=== PATIENT | female | born 1955 | race Caucasian/White ===

== ENCOUNTER 2020-09-21 13:50 | Outpatient (CLI) | payer MEDICARE, OTHER ==
[2020-09-21 14:25] LABS: ALT (SGPT) 50 U/L (8-55); AST (SGOT) 30 U/L (5-34); Albumin 3.3 g/dL (3.4-4.8); Alkaline Phosphatase 210 U/L (40-110); Anion Gap 19 mmol/L (10-20); BUN (Urea Nitrogen) 13 mg/dL (9.8-20.1); Bilirubin, Direct 0.3 mg/dL (0.1-0.3); Bilirubin, Total 0.6 mg/dL (0.2-1.2); Calc. Creatinine Clearance 0 mL/min (70-130); Calcium 7.8 mg/dL (7.8-10.44); Carbon Dioxide 22 mmol/L (23-31); Chloride 103 mmol/L (98-107); Globulin 3.6 g/dL (2.4-3.5); Glucose 85 mg/dL (80-115); Phosphorus 3.2 mg/dL (2.3-4.7); Potassium 4.1 mmol/L (3.5-5.1); Protein, Total 6.9 g/dL (6.0-8.3); Sodium 140 mmol/L (136-145)
[2020-09-21 16:59] LABS: Thyroid Stimulating Hormone 2.5027 uIU/mL (0.35-4.94)
[2020-09-21 17:14] LABS: Band 2 % (5-11); Hemoglobin 10.7 g/dL (12.0-16.0); Hypochromia SLIGHT = 6-15 cells (100X) (0-5/hpf); Lymphocytes 12 % (21-51); MDiff Complete? YES; Mean Corpuscular HGB CONC 31.1 g/dL (32.0-36.0); Mean Corpuscular Hemoglobin 28.1 pg (27.0-31.0); Mean Corpuscular Volume 90.5 fL (78.0-98.0); Mean Platelet Volume 4.5 fL (7.4-10.4); Monocytes 4 % (0-10); Neutrophil 82 % (42-75); Platelet Count 391 thou/uL (130-400); Platelet Morphology Comment Appears Adequate; RBC Distribution Width 14.5 % (11.5-14.5); RBC Morphology Normal; White Blood Cell (WBC) Count 25.1 thou/uL (4.8-10.8)
[2020-09-21 21:50] LABS: LDH 250 U/L (125-220)
[2020-09-21 22:10] LABS: Free T4 (Free Thyroxine) 0.85 ng/dL (0.70-1.48)
== END 2020-09-21 13:51 | disposition home or self-care (01) ==
LOC: MADLAB 13:50
PROVIDERS: ATTEND Internal Medicine Hematology & Oncology
DX: C34.01 Malignant neoplasm of right main bronchus (principal); C34.92 Malignant neoplasm of unspecified part of left bronchus or lung
CPT/HCPCS: 80053; 82248; 83615; 84100; 84439; 84443; 84550; 85025

== ENCOUNTER 2020-10-12 16:18 | Outpatient (CLI) | payer MEDICARE, OTHER | END 2020-10-12 16:19 | disposition home or self-care (01) | LOC: MADLAB 16:18 | PROVIDERS: ATTEND Internal Medicine Hematology & Oncology | DX: C34.01 Malignant neoplasm of right main bronchus (principal); C34.92 Malignant neoplasm of unspecified part of left bronchus or lung | CPT/HCPCS: 80053; 82248; 83615; 84100; 84436; 84439; 84443; 84550; 85025 ==

== ENCOUNTER 2020-10-16 11:06 | Emergency (ER) | payer MEDICARE, OTHER ==
[2020-10-16 11:41] LABS: #Basophils 0.1 thou/uL (0.0-0.2); #Eosinphils 0.1 thou/uL (0.0-0.7); #Lymphocytes 0.7 thou/uL (1.20-3.40); #Monocytes 1.1 thou/uL (0.11-0.59); #Neutrophils 26.1 thou/uL (1.40-6.50); %Basophils 0.3 % (0.0-1.0); %Eosinophils 0.5 % (0.0-10.0); %Lymphocytes 2.4 % (21.0-51.0); %Neutrophils 92.7 % (42.0-75.0); Hemoglobin 7.4 g/dL (12.0-16.0); Mean Corpuscular HGB CONC 31.9 g/dL (32.0-36.0); Mean Corpuscular Hemoglobin 27.7 pg (27.0-31.0); Mean Corpuscular Volume 86.8 fL (78.0-98.0); Mean Platelet Volume 5.4 fL (7.4-10.4); Platelet Count 388 thou/uL (130-400); RBC Distribution Width 13.8 % (11.5-14.5); Red Blood Cell (RBC) Count 2.69 mill/uL (4.20-5.40); White Blood Cell (WBC) Count 28.2 thou/uL (4.8-10.8)
[2020-10-16] MEDS ORDERED: Azithromycin 500 MG VIAL ONE (11:48)
[2020-10-16] MEDS ORDERED: Sodium Chloride 0.9% 250 ML 250 ML ONE (11:48)
[2020-10-16] MEDS ORDERED: Sodium Chloride 0.9% 1,000 ML ONE (11:48)
[2020-10-16] MEDS ORDERED: Sodium Chloride 0.9% 100 ML ONE (11:49)
[2020-10-16] MEDS ORDERED: Cefepime 2 GM VIAL ONE (11:49)
[2020-10-16 12:06] LABS: ALT (SGPT) 64 U/L (8-55); AST (SGOT) 128 U/L (5-34); Albumin 2.6 g/dL (3.4-4.8); Alkaline Phosphatase 514 U/L (40-110); Anion Gap 14 mmol/L (10-20); BUN (Urea Nitrogen) 25 mg/dL (9.8-20.1); Bilirubin, Total 0.3 mg/dL (0.2-1.2); Calc. Creatinine Clearance 0 mL/min (70-130); Calcium 8.1 mg/dL (7.8-10.44); Carbon Dioxide 23 mmol/L (23-31); Chloride 106 mmol/L (98-107); Globulin 4.2 g/dL (2.4-3.5); Glucose 110 mg/dL (80-115); Potassium 4.3 mmol/L (3.5-5.1); Protein, Total 6.8 g/dL (5.8-8.1); Sodium 139 mmol/L (136-145)
[2020-10-16 12:15] LABS: Bilirubin Negative (Negative); Blood, Urine Moderate (Negative); Clarity Clear (Clear); Glucose, Urine (Dipstick) Negative (Negative); Ketone, Urine Negative (Negative); Leukocyte Trace (Negative); Nitrite Negative (Negative); Protein, Urine (Dipstick) 100 mg/dL (Neg-Trace); Urobilinogen 0.2 mg/dL (Less than 2)
[2020-10-16 12:16] LABS: RBC/HPF 0-3 HPF (0-3)
[2020-10-16 12:17] LABS: Bacteria/HPF 2+ HPF (None Seen); WBC/HPF 0-3 HPF (0-3)
--- NOTE | 2020-10-16 12:19 | CT ---
Exam: Chest CT without contrast HISTORY: Cough, fever. Lung cancer. COMPARISON: 08/30/2020 PET imaging. FINDINGS: Limited evaluation of the mediastinum by the lack of IV contrast. No mass, lymphadenopathy or hematom a. Normal heart size. There are coronary artery calcifications. Atherosclerosis of a nonaneurysmal aorta. Subdiaphragmatic structures do not demonstrate any acute abnormality. Moderate hiatal hernia is ident ified. Stable emphysema. Dependent atelectatic changes, without suspicious consolidation or masses. There ar e small nodules in the left lower lobe, unchanged from previous PET imaging. These nodules are not reported to be FDG avid. There is a stable mass in the left upper lobe measuring 1.8 x 1.7 cm. No pleural effusion or pneumothorax. There is sclerosis involving the T6 vertebral body. There is a lucency along the right aspect of the T6 vertebral body extending into the pedicle and facet. There is mild loss of vertebral body height. There is also loss of vertebral body height along the superior endplate of T8 and T12 with sc lerosis suggesting remote compression deformities. IMPRESSION: 1. Stable emphysema. Redemonstration of a left upper lobe mass. 2. Presumed pathologic fracture at T6. There is evidence of sclerosis suggesting possible treated met astatic deposit. Lucency along the right aspect of the T6 vertebral body extending into the pedicle and facet is identified. Additional remote compression deformities are suspected at T8 and T12. Transcribed Date/Time: 10/16/2020 1:27 PM
[2020-10-16] MEDS ORDERED: Vancomycin 1.5 GRAM/300 ML BAG ONE (12:29)
[2020-10-16 12:32] LABS: SARS-CoV-2 NAA Rapid Test Not Detected (NotDetected)
[2020-10-16 12:53] LABS: INR-International Normal Ratio 1.3; PTT 54.1 sec (22.9-36.1); Prothrombin Time 16.8 sec (12.0-14.7)
[2020-10-16] MEDS ORDERED: Pantoprazole 40 MG VIAL ONE (13:21)
== END 2020-10-16 14:09 | disposition short-term general hospital (02) ==
LOC: MADERS 11:06
DX: A41.9 Sepsis, unspecified organism (principal); K75.9 Inflammatory liver disease, unspecified; D64.9 Anemia, unspecified; R06.03 Acute respiratory distress; R09.02 Hypoxemia; Z86.718 Personal history of other venous thrombosis and embolism; Z87.891 Personal history of nicotine dependence; Z79.899 Other long term (current) drug therapy
CPT/HCPCS: 0240U; 36415; 36430; 51701; 71250; 80053; 81001; 82274; 83605; 83880; 85025; 85610; 85730; 86850; 86900; 86901; 87040; 87086; 96365; 96367; 96368; 96375; C9113; J0456; J0692; J3370; J3490; J7050; P9016